=== PATIENT | female | born 1940 | race Caucasian/White ===

== ENCOUNTER 2017-10-10 07:24 | Day surgery (SDC) | payer MEDICARE, BC ==
[2017-10-10] MEDS ORDERED: Ondansetron 4 MG/2 ML SDV ONE (07:26)
[2017-10-10] MEDS ORDERED: Dexamethasone 4 MG/ML SDV ONE (07:26)
[2017-10-10] MEDS ORDERED: Rocuronium 50 MG/5 ML Vial ONE (07:26)
[2017-10-10] MEDS ORDERED: Glycopyrrolate 0.2 MG/ML 5 ML MDV ONE (07:26)
[2017-10-10] MEDS ORDERED: Succinylcholine 200 MG/10 ML MDV ONE (07:26)
[2017-10-10] MEDS ORDERED: Neostigmine Methylsulfate 1 MG/ML 5 ML Syringe ONE (07:26)
[2017-10-10] MEDS ORDERED: Propofol 200 MG/20 ML SDV ONE ×2 (07:26→10:30)
[2017-10-10] MEDS ORDERED: Bupivacaine 0.5% 30 ML SDV ONE (07:27)
[2017-10-10] MEDS ORDERED: Bupivacaine 0.5% 50 ML MDV ONE (07:28)
[2017-10-10] MEDS ORDERED: Povidone-Iodine 10% Soln 118.25 ML Bottle ONE (08:11)
[2017-10-10] MEDS ORDERED: EPINEPHrine 1 MG/ML SDV ONE (08:11)
[2017-10-10] MEDS ORDERED: Lactated Ringers 1,000 ML IV SCH (08:15)
[2017-10-10] MEDS ORDERED: fentaNYL 250 MCG/5 ML SDV ONE (09:24)
[2017-10-10] MEDS ORDERED: ceFAZolin 1 GM Vial ONE (09:50)
[2017-10-10] MEDS ORDERED: ePHEDrine 50 MG/ML SDV ONE (09:50)
[2017-10-10] MEDS: Bupivacaine 0.5%/EPINEPHrine 1:200,000 50 ML MDV ONE ×2 (10:13→11:05)
[2017-10-10] MEDS ORDERED: fentaNYL 100 MCG/2 ML SDV ONE (10:43)
[2017-10-10] MEDS ORDERED: Acetaminophen/oxyCODONE 325-5 MG Tab PO PRN (12:05)
--- NOTE | 2017-10-10 12:13 | OR ---
DATE OF PROCEDURE: 10/10/2017 PREOPERATIVE DIAGNOSES: Left shoulder impingement and rotator cuff tear. POSTOPERATIVE DIAGNOSES: 1. Left shoulder impingement and rotator cuff tear. 2. Bicipital tendinitis. 3. Labral tear. PROCEDURES: 1. Left shoulder arthroscopy with subacromial decompression. 2. Mini open rotator cuff repair. 3. Biceps tenotomy. 4. Labral debridement. ORDER MANAGER: RUTHY Ponce Physician bar assistant, Arlene Mcclellan NP, played an essential role in assisting in this case, helping to position the patient, retract structures as needed, as well as suturing and cutting sutures as indicated. Her presence improved patient's safety and decreased operative time. ANESTHESIA: Laryngeal mask airway, general anesthesia, and interscalene block. ESTIMATED BLOOD LOSS: Less than 25 mL. COMPLICATIONS: None. SPECIMEN: None. DISCHARGE DISPOSITION: Stable to PACU. HISTORY AND INDICATIONS FOR THE PROCEDURE: The patient was seen preoperatively by myself and the Anesthesia staff in the clinic, where she had been found to have left rotator cuff tear on MRI. She had a previous rotator cuff tear on the right side. She failed nonoperative treatment. Risks and benefits of the procedure were explained to the patient. Informed consent was obtained. DETAILS OF PROCEDURE: The patient was seen preoperatively by myself and the Anesthesia staff in the preop holding area, where the operative site was marked. She was brought to the operative suite by the Anesthesia staff, where general anesthesia was administered. She was placed in a beach-chair position. All extremities were found to be well padded. The left upper extremity was then prepped and draped in a sterile manner. Time-out was called identifying the correct patient, the correct procedure, the correct site, and antibiotics had been with appropriate period of time. A posterior portal was then made and I entered the joint. She was found to have fraying of the biceps tendon as well as labral fraying and tearing. There was a great deal of undersurface tearing of the supraspinatus and infraspinatus. I then used a spinal needle to make an anterior portal and then debrided the labrum and then performed a biceps tenotomy with cautery unit and cleaned up the underside of the rotator cuff. I then took all my instruments out. I then made a horizontal incision over the just lateral to the acromion and then carried this down to the deltoid and I split the deltoid fibers with a raphae between the anterior and medial bellies and then used the Gelpi and [place] for retraction, identified the rotator cuff tear, removed a small amount of bursa, and then placed 2 JuggerKnot anchors from my medial row and then 2 [place] knotless anchors from my lateral row. This provided and then ran my sutures through from the medial row anchors and then tied those under tension and then crisscross those sutures and put into the lateral row anchors. This provided good coverage of the rotator cuff tear. The rotator cuff was robust, so I felt that this was going to provide a good outcome. I then closed the deltoid fascia with #1 Stratafix. I then went back and entered the joint in the subacromial space. She had a large acromial hook. I used the shaver to perform a partial bursectomy and then the cautery unit to delineate the acromial hook and then used a usha to remove the undersurface of the acromial hook and then used the shaver to remove any soft tissue. We then removed our instruments and then closed the incision with 2-0 Vicryl and then Steri-Strips. The patient had a well sterile dressing placed and then was placed into a sling with an abduction pillow and transferred to hospital bed and then taken to the PACU in stable condition. Edwin Bagley DO /[id number]
--- NOTE | 2017-10-12 18:33 | ANES ---
DATE OF SERVICE: 10/12/2017 ADDENDUM: During the procedure at the same time that I gave an extra 100 mg of propofol. I did give her 2 mL of Sublimaze as well. So the total of Sublimaze given throughout the case was 7 mL. Da Johnson CRNA /[id number]
== END 2017-10-10 13:35 | disposition home or self-care (01) ==
LOC: JP.SDS 07:24
PROVIDERS: ATTEND Orthopaedic Surgery
DX: M75.122 Complete rotator cuff tear or rupture of left shoulder, not specified as traumatic (principal); M75.42 Impingement syndrome of left shoulder; M75.22 Bicipital tendinitis, left shoulder; S43.402A Unspecified sprain of left shoulder joint, initial encounter; I10 Essential (primary) hypertension; E11.9 Type 2 diabetes mellitus without complications; I73.9 Peripheral vascular disease, unspecified; Z79.82 Long term (current) use of aspirin; Z79.2 Long term (current) use of antibiotics; Z79.899 Other long term (current) drug therapy
CPT/HCPCS: 23412; 29822; 29826; J0171; J0330; J0690; J1100; J2405; J2704; J3010; J7120; 23410; J2710

== ENCOUNTER → 2019-02-13 | Outpatient (CLI) | payer MEDICARE, OTHER ==
--- NOTE | 2019-02-14 12:36 | CRLMY ---
INDICATION: bilateral screening mammogram, asymptomatic 78 year old female been obtained using full-field digital technique. These mammographic images were interpreted with the benefit of computer-aided detection. COMPARISON FILM: 09/27/17, 08/08/16, 11/05/14, 05/07/13. FINDINGS: There are scattered fibroglandular densities. There are no masses or calcifications that are suspicious for malignancy. IMPRESSION: There is no radiographic evidence for malignancy. ASSESSMENT: BI-RADS Category 2: Benign RECOMMENDATION: Routine screening mammogram in 1 year. A lay language report of this examination will be provided to the patient. Breast Tomosynthesis was used in this interpretation. [email or web address] Dictated by: Calvin Jones MD @ 02/14/2019 12:35:50 (Electronically Signed)
== END | disposition home or self-care (01) ==
LOC: JP.MAM 07:52
PROVIDERS: ATTEND Nurse Practitioner Family
DX: Z12.31 Encounter for screening mammogram for malignant neoplasm of breast (principal)
CPT/HCPCS: 77063; 77067

== ENCOUNTER 2019-04-24 06:23 | Day surgery (SDC) | payer MEDICARE, OTHER ==
[2019-04-24] MEDS ORDERED: Sodium Chloride 0.9% 10 ML Syringe FLUSH PRN (07:00)
--- NOTE | 2019-04-24 11:08 | OR ---
DATE OF PROCEDURE: 04/24/2019 POSTOPERATIVE CARE: Postoperative care will be provided mainly at the [address] [place] [address] [facility] in conjunction with [facility]. PREOPERATIVE DIAGNOSIS: Cataract, right eye. POSTOPERATIVE DIAGNOSIS: Cataract, right eye. PROCEDURE: Phacoemulsification with intraocular lens placement, right eye. ANESTHESIA: Topical and intracameral. ESTIMATED BLOOD LOSS: Minimal. COMPLICATIONS: None. PATHOLOGY SPECIMENS: None. SURGICAL FINDINGS: None. INDICATION FOR PROCEDURE: The patient is a 78-year-old female with history of a visually significant cataract in the right eye, which interfered with activities of daily living. This consisted of a nuclear sclerosis cataract. Following careful discussion of the risks, benefits and alternatives to cataract extraction with intraocular lens placement including blindness and , the patient elected to proceed, and informed, written consent was obtained prior to the procedure. DESCRIPTION OF THE PROCEDURE: The patient was previously identified, and a josh placed above the right eye. All sources, including the patient, indicated that the right eye was the correct eye. The patient was subsequently taken to the operating room where standard monitors were applied. The patient was then prepped and draped in the usual sterile fashion for ophthalmic surgery. Attention was first directed at the 12 o'clock position where a paracentesis port was fashioned. Shugar solution followed by Viscoat was instilled into the eye. Attention was then directed to the 8:30 position where a triplanar incision was made in a near-clear manner using a keratome. A continuous capsulorrhexis was then made using a combination of the cystotome and Utrata forceps. Hydrodissection was achieved using a balanced salt solution, and the lens rotated nicely. Phacoemulsification was then done using a modified [id number] technique without complication. Phaco time was 6.71 CDE. The remaining cortex was removed using the irrigation/aspiration handpiece. Provisc was then instilled into the eye. A Technis lens, model [id number], at 15.5 Diopters was then placed in the capsular bag using an [place] injector. The remaining viscoelastic was removed using the irrigation/aspiration forceps. All wounds were then checked and found to be watertight. The lid speculum and drapes were removed. Maxitrol ointment was placed in the patient's right eye, and the eye was shielded. The patient tolerated the procedure well. The patient was instructed to follow up tomorrow. All needle and sponge counts were correct at the end of the procedure. There were no surgical findings. Jada Green MD /[id number]
== END 2019-04-24 08:20 | disposition home or self-care (01) ==
LOC: JP.SDS 06:23
PROVIDERS: ATTEND Ophthalmology
DX: E11.36 Type 2 diabetes mellitus with diabetic cataract (principal); H25.11 Age-related nuclear cataract, right eye; I10 Essential (primary) hypertension; E11.51 Type 2 diabetes mellitus with diabetic peripheral angiopathy without gangrene; E78.5 Hyperlipidemia, unspecified; Z88.5 Allergy status to narcotic agent; Z95.2 Presence of prosthetic heart valve
CPT/HCPCS: 66984; C1780

== ENCOUNTER 2019-05-08 06:24 | Day surgery (SDC) | payer MEDICARE, OTHER ==
[2019-05-08] MEDS ORDERED: Sodium Chloride 0.9% 10 ML Syringe FLUSH PRN (06:45)
--- NOTE | 2019-05-08 12:49 | OR ---
DATE OF PROCEDURE: 05/08/2019 POSTOPERATIVE CARE: Postoperative care will be provided mainly at the [address] [place] [address] [facility] in conjunction with [facility]. PREOPERATIVE DIAGNOSIS: Cataract, left eye. POSTOPERATIVE DIAGNOSIS: Cataract, left eye. PROCEDURE: Phacoemulsification with intraocular lens placement, left eye. ANESTHESIA: Topical and intracameral. ESTIMATED BLOOD LOSS: Minimal. COMPLICATIONS: None. PATHOLOGY SPECIMENS: None. SURGICAL FINDINGS: None. INDICATION FOR PROCEDURE: The patient is a 78-year-old female with history of a visually significant cataract in the left eye, which interfered with activities of daily living. This consisted of a nuclear sclerosis cataract. Following careful discussion of the risks, benefits and alternatives to cataract extraction with intraocular lens placement including blindness and , the patient elected to proceed, and informed, written consent was obtained prior to the procedure. DESCRIPTION OF THE PROCEDURE: The patient was previously identified, and a josh placed above the left eye. All sources, including the patient, indicated that the left eye was the correct eye. The patient was subsequently taken to the operating room where standard monitors were applied. The patient was then prepped and draped in the usual sterile fashion for ophthalmic surgery. Attention was first directed at the 12 o'clock position where a paracentesis port was fashioned. Shugar solution followed by Viscoat was instilled into the eye. Attention was then directed to the 8:30 position where a triplanar incision was made in a near-clear manner using a keratome. A continuous capsulorrhexis was then made using a combination of the cystotome and Utrata forceps. Hydrodissection was achieved using a balanced salt solution, and the lens rotated nicely. Phacoemulsification was then done using a modified jgwrli-vvw-slgeviq technique without complication. Phaco time was 7.18 CDE. The remaining cortex was removed using the irrigation/aspiration handpiece. Provisc was then instilled into the eye. A Technis lens, model [id number], at 16.0 Diopters was then placed in the capsular bag using an [place] injector. The remaining viscoelastic was removed using the irrigation/aspiration forceps. All wounds were then checked and found to be watertight. The lid speculum and drapes were removed. Maxitrol ointment was placed in the patient's left eye, and the eye was shielded. The patient tolerated the procedure well. The patient was instructed to follow up tomorrow. All needle and sponge counts were correct at the end of the procedure. There were no surgical findings. Jada Green MD /[id number]
== END 2019-05-08 08:20 | disposition home or self-care (01) ==
LOC: JP.SDS 06:24
PROVIDERS: ATTEND Ophthalmology
DX: E11.36 Type 2 diabetes mellitus with diabetic cataract (principal); H25.12 Age-related nuclear cataract, left eye; I10 Essential (primary) hypertension; E11.51 Type 2 diabetes mellitus with diabetic peripheral angiopathy without gangrene; E78.5 Hyperlipidemia, unspecified; Z88.5 Allergy status to narcotic agent
CPT/HCPCS: 66984; V2632